=== PATIENT | female | born 1960 | race Caucasian/White ===

== ENCOUNTER 2017-01-17 08:54 | Emergency (ER) | payer BC ==
[~2017-01-17] VITALS: Ht 167.6 cm; Wt 73.0 kg
[2017-01-17 09:02] VITALS: Ht 167.6 cm; Wt 73.0 kg
[2017-01-17] MEDS ORDERED: FLUT9.9S NASAL (10:18)
[2017-01-17] MEDS ORDERED: AZIT250T94 PO (10:18)
[2017-01-17] MEDS ORDERED: CPR3OO3.5 LEFT EYE (10:19)
--- NOTE | 2017-01-17 14:03 | ERD ---
ER Documentation Chief Complaint Date/Time DATE: 01/17/17 TIME: 14:00 Chief Complaint Complains of left eye rednes and pain x 7 days HPI This patient is a 56-year-old female with no significant medical history presenting to the emergency department for left eye redness and pain which began yesterday. Additionally the patient has had sinus congestion for the past week which is worsening. She has had green discharge from her sinuses. The patient had eyelash crusting to her left eye this morning and it was difficult for her to open her eye secondary to this complaint. The patient has had no vision changes. The patient does wear contacts but she has not worn them for the past 5 days. Patient denies chills, fevers, urinary symptoms, nausea, vomiting, diarrhea, or other symptoms at this time. ROS All systems reviewed and are negative except as per history of present illness. Medications Home Meds Active Scripts Ciprofloxacin Opht* (Ciloxan*) 0.3%-3.5 Opht Oint, 1 APPLIC LEFT EYE QID for 7 Days, #1 BOTTLE Prov:THIEN JOHNSON PA-C 01/17/17 Fluticasone Propionate (Flonase Allergy Relief) 9.9 Ml [place].susp, 2 SPRAY NASAL DAILY, #1 BOTTLE TO EACH NOSTRIL Prov:THIEN JOHNSON PA-C 01/17/17 Azithromycin* (Zithromax*) 250 Mg Tablet, 250 MG PO .ZPACK DIRECTED, #6 TAB TAKE 500 MG (2 TABS) THE FIRST DAY THEN 250 MG (1 TAB) DAYS 2-5 Prov:THIEN JOHNSON PA-C 01/17/17 Allergies Allergies: Coded Allergies: Penicillins (Verified Allergy, Intermediate, Rash, 01/17/17) PMhx/Soc Medical and Surgical Hx: pt denies Medical Hx, pt denies Surgical Hx FmHx Noncontributory for chief complaint Physical Exam Vitals Vital Signs Date Time Temp Pulse Resp B/P Pulse Ox O2 Delivery O2 Flow Rate FiO2 01/17/17 09:02 98.0 92 20 123/87 92 Physical Exam Const: The patient is resting comfortably in no acute distress Head: Atraumatic Eyes: There is conjunctival injection of the left eye with some discharge present on the eyelashes. EOMs are intact bilaterally. The right eye is normal in appearance. ENT: Congested nares. Normal external ears and nose. There is some tenderness to light tapping of the facial sinuses. Neck: Full range of motion..~ No meningismus. Resp: Clear to auscultation bilaterally Cardio: Regular rate and rhythm, no murmurs Abd: Soft, non tender, non distended. Normal bowel sounds Skin: No petechiae or rashes Back: No midline or flank tenderness Ext: No cyanosis, or edema Neur: Awake and alert Psych: Normal Mood and Affect Procedures/MDM 56-year-old female presents to the emergency department with nasal congestion for 1 week. Additionally the patient has left eye redness with some mild discharge since yesterday. On physical examination the patient's vitals are within normal limits. Examination of the left eye reveals conjunctival injection consistent with conjunctivitis possible bacterial etiology. Examination of the sinuses reveals tenderness with light tapping of the facial sinuses consistent with possible bacterial acute sinusitis. The patient is stable for outpatient management with a prescription for azithromycin, Flonase, and ciprofloxacin otic. The patient agrees with the discharge plan of diagnosis. At this time I have low suspicion for periorbital cellulitis, orbital cellulitis, retropharyngeal abscess, peritonsillar abscess, septicemia, or other emergent conditions. Strict ER return precautions were discussed the patient and she demonstrates good understanding of this information. Patient's blood pressure was elevated (>120/80) but appears stable without evidence of hypertension emergency or urgency. The patient was counseled about the risks of hypertension and urged to pursue outpatient monitoring and therapy within a week with their primary care physician. Departure Diagnosis: Primary Impression: Conjunctivitis Additional Impressions: Upper respiratory infection Nasal congestion Sinusitis Condition: Fair Patient Instructions: Conjunctivitis Caused by Infection, Preventing Common Respiratory Infections, Sinusitis, Abx Tx Additional Instructions: Follow up with your PCP within the next 1-3 days for a more thorough evaluation and a possible referral to a specialist. Return the the emergency department immediately if symptoms worsen or change. If you have any questions regarding medications, ask your pharmacist or us before you leave. If any adverse reactions, occur while taking your medications, discontinue the treatment and return to the emergency department immediately. If any new or worsening symptoms, uncontrolled fevers, or other unexplained symptoms occur, return to the emergency department immediately. Take your medications as directed, and complete the entire course of treatment. THIEN JOHNSON PA-C January 17, 2017 14:03
== END 2017-01-17 10:34 | disposition home or self-care (01) ==
LOC: FTE 08:54
DX: H10.9 Unspecified conjunctivitis (principal); J06.9 Acute upper respiratory infection, unspecified; R09.81 Nasal congestion; J32.9 Chronic sinusitis, unspecified
CPT/HCPCS: 99284